=== PATIENT | female | born 1965 | race Hispanic/Latino ===

== ENCOUNTER → 2018-08-04 | Day surgery (SDC) | payer OTHER ==
[2018-08-03 14:42] LABS: ANION GAP 12.3 mmol/L (8-16); BLOOD UREA NITROGEN 16 mg/dL (7-26); BUN/CREATININE RATIO 24 (6-25); CARBON DIOXIDE 27 mmol/L (22-29); CHLORIDE 106 mmol/L (98-107); CREATININE, SERUM 0.67 mg/dL (0.57-1.11); EST GLOMERULAR FILTRATION RATE > 60 ML/MIN (60-); GLUCOSE 97 mg/dL (74-118); POTASSIUM 4.3 mmol/L (3.5-5.1); SODIUM 141 mmol/L (136-145)
[~2018-08-04] MED LIST: ACETAMINOPHEN 1000 MG/100 ML 100 ML IV ONE; BUPIVACAINE HCL 0.5% INJ 30 ML VIAL INJ ONE; CEFAZOLIN SOD 1 GM/D5W 50ML 50 ML IV ONE; DEXAMETHASONE SOD PHOS INJ 4 MG/ML VIAL ONE; EPHEDRINE SULFATE INJ 50 MG/10 ML SYR ONE; FENTANYL CITRATE/PF 100MCG/2 ML INJ ONE; LIDOCAINE HCL 2% LOCAL INJ 5 ML SDV VIAL INJ ONE; METFORMIN HCL500 MG PO; MIDAZOLAM HCL 2 MG/2 ML VIAL ONE; ONDANSETRON HCL INJ 2 MG/ML VIAL ONE; PROPOFOL IV EMULSION 10 MG/ML 20 ML VIAL ONE
--- OUTSIDE RECORDS SUMMARY | 2018-08-04 05:44 | XMS REPORT | Summary of Care ---
Author Author [facility] [place] Organization [facility] [place] Address Unknown Phone Unavailable Encounter HQ Encntr_alimelissa(FIN) [id number] Date(s): 06/01/15 - 06/01/15 [facility] [place] [address] [place] [id number] [phone] Discharge Disposition: Home Attending Physician: Jolene Gold MD Vital Signs No data available for this section Problem List No data available for this section Allergies, Adverse Reactions, Alerts No data available for this section Medications No data available for this section Results No data available for this section Immunizations No data available for this section Procedures No data available for this section Social History No data available for this section Assessment and Plan No data available for this section
--- OUTSIDE RECORDS SUMMARY | 2018-08-04 05:44 | XMS REPORT | Summary of Care ---
Author Author [facility] Organization [facility] Address Unknown Phone Unavailable Encounter JIAN Jhaveri(JOSÉ MIGUEL) [id number] Date(s): 08/08/16 - 08/08/16 [facility] [address] [facility] provided by [facility] [employer] [facility] [employer] [place] [address]- Discharge Diagnosis: Headache, migraine Discharge Disposition: Home or Self Care Attending Physician: Josie Hendrickson MD Vital Signs Most recent to 1 2 oldest [Reference Range]: Height 154.94 cm (08/08/16 10:16 AM) Temperature Oral 98.0 DegF 97.8 DegF [96.4-99.1 DegF] (08/08/16 1:03 PM) (08/08/16 10:16 AM) Blood Pressure 126/81 mmHg 127/87 mmHg [90-140/60-90 mmHg] (08/08/16 1:03 PM) (08/08/16 10:16 AM) Respiratory Rate 18 BRMIN 18 BRMIN [14-20 BRMIN] (08/08/16 1:03 PM) (08/08/16 10:16 AM) Peripheral Pulse 80 bpm 79 bpm Rate [60-100 bpm] (08/08/16 1:03 PM) (08/08/16 10:16 AM) Weight 76.364 kg (08/08/16 10:16 AM) Body Mass Index 31.81 m2 (08/08/16 10:16 AM) Problem List Condition Effective Dates Status Health Status Informant Prediabetes(Confirme Resolved d) Migraine(Confirmed) Active Allergies, Adverse Reactions, Alerts Substance Reaction Severity Status NKDA Active Medications Benadryl 25 mg, 0.5 mL, Route: IVP, Drug form: INJ, ONCE, Dosing Weight 76.364, kg, Prior ity: STAT, Start date: 08/08/16 10:29:00 ARTIFACTS CONSERVATOR, Stop date: 08/08/16 10:29:00 ARTIFACTS CONSERVATOR Notes: (Same as: Benadryl) Start Date: 08/08/16 Stop Date: 08/08/16 Status: Completed ketOROLAC 30 mg, 1 mL, Route: IVP, Drug form: INJ, ONCE, Dosing Weight 76.364, kg, Priorit y: STAT, Start date: 08/08/16 10:29:00 ARTIFACTS CONSERVATOR, Stop date: 08/08/16 10:29:00 ARTIFACTS CONSERVATOR Notes: (Same as:Toradol) IV bolus must be given >15 seconds. Give IM administration slowly and deeply into the muscle.Not for use > 4 days MEDICATION WASTE Product Size: 30 mgProduct Wasted: ___ mg Start Date: 08/08/16 Stop Date: 08/08/16 Status: Completed metoclopramide 10 mg, 2 mL, Route: IVP, Drug form: INJ, ONCE, Dosing Weight 76.364, kg, Priorit y: STAT, Start date: 08/08/16 10:29:00 ARTIFACTS CONSERVATOR, Stop date: 08/08/16 10:29:00 ARTIFACTS CONSERVATOR Notes: (Same as: Reglan) Start Date: 08/08/16 Stop Date: 08/08/16 Status: Completed sodium chloride 0.9% 1000 ml INJ 1,000 mL 1,000 mL, Rate: 1,000 ml/hr, Infuse over: 1 hr, Route: IV, Dosing Weight 76.364 kg, Total Volume: 1,000, Start date: 08/08/16 10:29:00 ARTIFACTS CONSERVATOR, Duration: 1 doses or times, Stop date: 08/08/16 11:28:00 ARTIFACTS CONSERVATOR, Bolus Dose Start Date: 08/08/16 Stop Date: 08/08/16 Status: Completed Results No data available for this section Immunizations No data available for this section Procedures Procedure Date Related Diagnosis Body Site Partial hysterectomy Social History Social History Type Response Smoking Status Never smoker; Exposure to Tobacco Smoke None; Cigarette Smoking Last 365 Days No; Reg Smoking Cessation Counseling No Assessment and Plan No data available for this section
--- OUTSIDE RECORDS SUMMARY | 2018-08-04 05:44 | XMS REPORT | Continuity of Care Document ---
Author Author Stephanie [facility] Address Unknown Phone Unavailable Problems Problem Status Onset Date Classification Date Reported Comments Source Discharge Diagnosis: Elevated BP without diagnosis of hypertension 08/20/2017 08/23/2017 [facility] Discharge Diagnosis: Syncope 08/20/2017 08/23/2017 [facility] ARTIS/SYNCOPE Active 08/19/2017 [facility] Discharge Diagnosis: Headache, migraine 08/08/2016 08/11/2016 [facility] MIGRAINE Active 08/08/2016 [facility] 611.71 - MASTODYNIA Active 05/29/2015 [facility] [place] 611.71=MASTODYNIA, FEMALE Active 09/29/2014 [facility] 611.72 - LUMP OR MASS IN Active 04/08/2012 [facility] Prediabetes Resolved Problem 08/23/2017 [facility] Migraine Active Problem 08/23/2017 [facility] Medications Medication Details Route Status Patient Instructions Ordering Provider Order Date Source Ondansetron 4 MG Disintegrating Tablet 4 mg=1 tab, PO, TID, PRN Nausea / Vomiting, Dissolve tab under tongue, # 10 tab, 0 Refill(s) Active 08/20/2017 [facility] meloxicam 7.5 mg oral tablet 7.5 mg=1 tab, PO, Daily, # 5 tab, 0 Refill(s) Active 08/20/2017 [facility] Metoclopramide 10 mg, Route: IVP, Drug form: INJ, ONCE, Dosing Weight 75, kg, Priority: STAT, Start date: 08/19/17 22:33:00 [employer] SEALER, Stop date: 08/19/17 22:33:00 [employer] SEALER Inactive 08/20/2017 [facility] Ketorolac 15 mg, Route: IVP, Drug form: INJ, ONCE, Dosing Weight 75, kg, Priority: STAT, Start date: 08/19/17 22:32:00 [employer] SEALER, Stop date: 08/19/17 22:32:00 [employer] SEALER Inactive 08/20/2017 [facility] Potassium Chloride 40 mEq, 2 tab, Route: PO, Drug form: ERTAB, ONCE, Dosing Weight 75, kg, Priority: STAT, Start date: 08/19/17 22:03:00 [employer] SEALER, Stop date: 08/19/17 22:03:00 CSTNotes: (Same as: K-Dur 20) "Do Not Crush" With food and full glass of water Inactive 08/20/2017 [facility] Zofran 4 mg, Route: IVP, Drug form: INJ, ONCE, Dosing Weight 75, kg, Priority: STAT, Start date: 08/19/17 21:25:00 [employer] SEALER, Stop date: 08/19/17 21:25:00 [employer] SEALER Inactive 08/20/2017 [facility] Sodium Chloride 0.9% (Bolus) IV 1,000 mL, 1000 ml/hr, Infuse Over: 1 hr, Route: IV, 1,000, Drug form: INJ, ONCE, Priority: STAT, Dosing Weight 75 kg, Start date: 08/19/17 20:14:00 [employer] SEALER, Stop date: 08/19/17 20:14:00 [employer] SEALER Inactive 08/20/2017 [facility] Saline Flush 0.9% 10 mL, Route: IVP, Drug Form: INJ, Dosing Weight 75, kg, PRN, PRN Line Flush, Start date: 08/19/17 20:14:00 [employer] SEALER, Duration: 30 day, Stop date: 09/18/17 20:13:00 CSTNotes: (Same as: BD Posiflush) No Longer Active 08/20/2017 [facility] Metoclopramide 10 mg, 2 mL, Route: IVP, Drug form: INJ, ONCE, Dosing Weight 76.364, kg, Priority: STAT, Start date: 08/08/16 10:29:00 [employer] P[employer] SEALER, Stop date: 08/08/16 10:29:00 CSTNotes: (Same as: Reglan) Inactive 08/08/2016 [facility] Ketorolac 30 mg, 1 mL, Route: IVP, Drug form: INJ, ONCE, Dosing Weight 76.364, kg, Priority: STAT, Start date: 08/08/16 10:29:00 [employer]OND[employer] PACK[employer] SEALER, Stop date: 08/08/16 10:29:00 CSTNotes: (Same as:Toradol) IV bolus must be given >15 seconds. Give IM administration slowly and deeply into the muscle. Not for use > 4 days MEDICATION WASTE Product Size: 30 mg Product Wasted: ___ mg Inactive 08/08/2016 [facility] sodium chloride 0.9% 1000 ml INJ 1,000 mL 1,000 mL, Rate: 1,000 ml/hr, Infuse over: 1 hr, Route: IV, Dosing Weight 76.364 kg, Total Volume: 1,000, Start date: 08/08/16 10:29:00 [employer]ICOND[employer] P[employer] SEALER, Duration: 1 doses or times, Stop date: 08/08/16 11:28:00 SEMICOND[employer]CTOR PACKAGES SEALER, Bolus Dose Inactive 08/08/2016 [facility] Benadryl 25 mg, 0.5 mL, Route: IVP, Drug form: INJ, ONCE, Dosing Weight 76.364, kg, Priority: STAT, Start date: 08/08/16 10:29:00 SEMICONDUCTOR PACKAGES SEALER, Stop date: 08/08/16 10:29:00 CSTNotes: (Same as: Benadryl) Inactive 08/08/2016 [facility] Allergies, Adverse Reactions, Alerts Substance Category Reaction Severity Reaction type Status Date Reported Comments Source Immunizations Immunization Date Given Site Status Last Updated Comments Source Results Order Name Results Value Reference Range Date Interpretation Comments Source URINE AND STOOL UA Urobilinogen <=1.0 mg/dL 0.1 - 1.0 08/20/2017 [facility] URINE AND STOOL UA Glucose Negative mg/dL Negative mg/dL 08/20/2017 [facility] URINE AND STOOL UA Sq Epi Occasional /LPF Few /LPF 08/20/2017 [facility] URINE AND STOOL UA Nitrite Negative (08/19/17 9:45 PM) Negative 08/20/2017 [facility] URINE AND STOOL UA Mucus Few /LPF None Seen /LPF 08/20/2017 [facility] URINE AND STOOL UA Leuk Est Negative (08/19/17 9:45 PM) Negative 08/20/2017 [facility] URINE AND STOOL UA Ketones Negative mg/dL Negative mg/dL 08/20/2017 [facility] URINE AND STOOL UA Blood Negative (08/19/17 9:45 PM) Negative 08/20/2017 [facility] URINE AND STOOL UA Bili Negative *NA* (08/19/17 9:45 PM) Negative 08/20/2017 [facility] URINE AND STOOL UA Bacteria Occasional /HPF None Seen /HPF 08/20/2017 [facility] URINE AND STOOL UA WBC 1 /HPF 0 - 5 08/20/2017 [facility] URINE AND STOOL UA RBC 1 /HPF 0 - 2 08/20/2017 [facility] URINE AND STOOL UA Spec Grav 1.008 <=1.030 08/20/2017 [facility] URINE AND STOOL UA Turbidity Clear (08/19/17 9:45 PM) Clear 08/20/2017 [facility] URINE AND STOOL UA Protein Negative mg/dL Negative mg/dL 08/20/2017 [facility] URINE AND STOOL UA pH 6.0 5.0 - 8.0 08/20/2017 [facility] URINE AND STOOL UA Color Light Yellow *NA* (08/19/17 9:45 PM) Yellow 08/20/2017 [facility] CARDIAC ENZYMES CK MB Index null 0.0 - 2.5 08/20/2017 [facility] CARDIAC ENZYMES Troponin-I null 0.00 - 0.40 08/20/2017 [facility] CARDIAC ENZYMES CK MB null 0.5 - 3.6 08/20/2017 [facility] CARDIAC ENZYMES Total CK 40 unit/L 12 - 191 08/20/2017 [facility] CHEM PANEL Bili Total 0.4 mg/dL 0.2 - 1.3 08/20/2017 [facility] CHEM PANEL eGFR 108 mL/min/1.73m2 08/20/2017 Result Comment: The eGFR is calculated using the CKD-EPI formula. In most young, healthy individuals the eGFR will be >90 mL/min/1.73m2. The eGFR declines with age. An eGFR of 60-89 may be normal in some populations, particularly the elderly, for whom the CKD-EPI formula has not been extensively validated. Use of the eGFR is not recommended in the following populations: Individuals with unstable creatinine concentrations, including patients and those with serious co-morbid conditions. Patients with extremes in muscle mass or diet. The data above are obtained from the National Kidney Disease Education Program (NKDEP) which additionally recommends that when the eGFR is used in patients with extremes of body mass index for purposes of drug dosing, the eGFR should be multiplied by the estimated BMI. [facility] CHEM PANEL Alk Phos 88 unit/L 39 - 136 08/20/2017 [facility] CHEM PANEL Albumin Lvl 3.5 g/dL 3.5 - 5.0 08/20/2017 [facility] CHEM PANEL ALT 29 unit/L 0 - 65 08/20/2017 [facility] CHEM PANEL AST 21 unit/L 0 - 37 08/20/2017 [facility] CHEM PANEL Globulin 4.3 g/dL 2.7 - 4.2 08/20/2017 [facility] CHEM PANEL A/G Ratio 0.8 0.7 - 1.6 08/20/2017 [facility] CHEM PANEL B/C Ratio 27 6 - 25 08/20/2017 [facility] CHEM PANEL Total Protein 7.8 g/dL 6.4 - 8.4 08/20/2017 [facility] CHEM PANEL AGAP 11.0 meq/L 10.0 - 20.0 08/20/2017 [facility] CHEM PANEL Calcium Lvl 9.0 mg/dL 8.5 - 10.5 08/20/2017 [facility] CHEM PANEL Chloride Lvl 107 meq/L 95 - 109 08/20/2017 [facility] CHEM PANEL Potassium Lvl 3.0 meq/L 3.5 - 5.1 08/20/2017 Result Comment: Critical Result(s) called to verna oviedo at 08/19/2017 21:56 bylw. Read back OK. [facility] CHEM PANEL CO2 26 meq/L 24 - 32 08/20/2017 [facility] CHEM PANEL Creatinine Lvl 0.59 mg/dL 0.50 - 1.40 08/20/2017 [facility] CHEM PANEL BUN 16 mg/dL 7 - 22 08/20/2017 [facility] CHEM PANEL Sodium Lvl 141 meq/L 135 - 145 08/20/2017 [facility] CHEM PANEL Glucose Lvl 114 mg/dL 70 - 99 08/20/2017 [facility] ENDOCRINOLOGY S Preg Negative *NA* (08/19/17 9:20 PM) Negative 08/20/2017 [facility] HEMATOLOGY Eosinophils # 0.4 K/CMM 0.0 - 0.5 08/20/2017 [facility] HEMATOLOGY Basophils # 0.1 K/CMM 0.0 - 0.2 08/20/2017 [facility] HEMATOLOGY Lymphocytes 36.8 % 20.0 - 40.0 08/20/2017 [facility] HEMATOLOGY Monocytes 6.9 % 2.0 - 12.0 08/20/2017 [facility] HEMATOLOGY Eosinophils 4.2 % 0.0 - 4.0 08/20/2017 [facility] HEMATOLOGY Basophils 0.9 % 0.0 - 1.0 08/20/2017 [facility] HEMATOLOGY Segs-Bands # 4.7 K/CMM 1.5 - 8.1 08/20/2017 [facility] Segs 51.2 % 45.0 - 75.0 08/20/2017 [facility] Monocytes # 0.6 K/CMM 0.0 - 0.8 08/20/2017 [facility] HEMATOLOGY Lymphocytes # 3.3 K/CMM 1.0 - 5.5 08/20/2017 [facility] PTT 31.8 s 22.9 - 35.8 08/20/2017 [facility] PT 13.0 s 12.0 - 14.7 08/20/2017 [facility] INR 0.98 0.85 - 1.17 08/20/2017 [facility] Platelet 267 K/CMM 133 - 450 08/20/2017 [facility] Hgb 13.4 g/dL 12.0 - 16.0 08/20/2017 [facility] MCV 88.9 fL 80.0 - 98.0 08/20/2017 [facility] Hct 38.8 % 36.0 - 48.0 08/20/2017 [facility] MCH 30.8 pg 27.0 - 31.0 08/20/2017 [facility] MCHC 34.6 g/dL 32.0 - 36.0 08/20/2017 [facility] RBC 4.37 M/CMM 4.20 - 5.40 08/20/2017 [facility] RDW 13.4 % 11.5 - 14.5 08/20/2017 [facility] WBC 9.1 K/CMM 3.7 - 10.4 08/20/2017 [facility] MPV 8.5 fL 7.4 - 10.4 08/20/2017 [facility] Chest 1view DX Chest 1view DX Patient Name: PIEDAD COX : 1965; Age: 51 years y/o Female MR: [id number] Study: Chest 1view DX 08/19/2017 8:14 PM [employer]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 The cardiac silhouette is mildly prominent. The polar vasculature appears somewhat congested. There is no pleural effusion or pneumothorax. IMPRESSION: Cardiac silhouette and pulmonary vessels appear prominent. Although possibly accentuated by expiratory phase portable AP radiograph, correlate clinically for volume overload, congestive heart failure status. SL: MARY 08/19/2017 - - Read by: Aj Mcginnis MD Dictated Date/time: 08/19/17 20:42 Electronically Signed by: Aj Mcginnis MD 08/19/17 20:43 FINAL REPORT [facility] contrast CT Brain wo contrast CT I have reviewed this examination and concur with the interpretation. Clinical Indication: - syncope; syncope x3 prior to arrival, headache (2), Comparison: 08/08/2016 TECHNIQUE: CT images were obtained from the foramen magnum to the vertex without the use of intravenous contrast on a multidetector CT. Coronal and sagittal reconstructions were obtained. CT radiation dose DLP: 1204 mGy-cm FINDINGS: BRAIN PARENCHYMA: There is no mass effect, midline shift or edema. There is no intracranial hyperdense hemorrhage. VENTRICLES: The lateral ventricles, third and fourth ventricles appear unremarkable. The basilar cisterns are normal. ORBITS, MASTOIDS AND PARANASAL SINUSES: The limited visualized orbits are unremarkable. The limited visualized paranasal sinuses are unremarkable. The mastoid air cells are clear. SKULL: There are no osseous abnormalities. If there is further concern for intracranial pathology or acute stroke, MRI of the brain may be performed for complete assessment. ---- IMPRESSION: Unremarkable noncontrast head CT with no mass effect, hemorrhage or subacute stroke. ----- SL: [id number] 08/19/2017 - - Read by: Pepe Felton DO Dictated Date/time: 08/19/17 21:05 Electronically Signed by: Pepe Felton DO 08/19/17 21:07 FINAL REPORT - - Read by: Gucci Dean MD Dictated Date/time: 08/19/17 20:49 Electronically Signed by: Gucci Dean MD 08/19/17 20:51 FINAL REPORT [facility] contrast CT Brain wo contrast CT EXAM: CT BRAIN WITHOUT CONTRAST DATE: 08/08/2016 11:18 AM INDICATION: Headache COMPARISON: None TECHNIQUE: Noncontrast axial imaging of the brain was acquired from the vertex to the skull base. Coronal and sagittal reformatted images were generated. DLP: 758mGy-cm FINDINGS: No acute hemorrhage or extra-axial collection. Unremarkable attenuation of the brain parenchyma. No hydrocephalus, midline shift, or herniation. No abnormal extra-axial collection. The calvarium and skull base are intact. Mucosal thickening and fluid in the right sphenoid sinus chamber. IMPRESSION: No acute intracranial abnormality. Right sphenoid sinus disease. 08/08/2016 - - Read by: Senthil Negrete MD Dictated Date/time: 08/08/16 11:45 Electronically Signed by: Senthil Negrete MD 08/08/16 11:52 FINAL REPORT [facility] Breast Limited Hayder US Breast Limited Hayder US - DIGITAL MAMMO DX HAYDER MA - BREAST LIMITED HAYDER US BILATERAL DIGITAL DIAGNOSTIC MAMMOGRAM WITH CAD AND TARGETED BILATERAL ULTRASOUND: 06/01/2015 CLINICAL: Mastodynia. Current study was evaluated with a Computer Aided Detection (CAD) system. Comparison is made to exams dated: 01/09/2012 mammogram, 02/22/2011 mammogram and 01/24/2011 mammogram. The tissue of both breasts is heterogeneously dense, which could obscure detection of small masses. Patient complains of right breast pain inferior hemisphere. No mammographic or US correlation identified. Patient complains of leftbreast pain inferior hemisphere. No mammographic orrelation identified. Ion ultrasound evaluation, there is a complex cyst seen at the 3:00 6 CMFN. It measures 1.1 x .6 x .5 cm. IMPRESSION: PROBABLY BENIGN, TARGETED ULTRASOUND PROBABLY BENIGN There is no mammographic abnormality seen in the right breast to correspond with the pain. A follow-up mammogram and an ultrasound in 6 months is recommended to demonstrate stability of the complex cyst of the left breast. Dr. Tigre Thompson M.D. sl/:06/01/2015 15:42:19 [employer] Tr[employer]: Kayla BARILLAS(Cabrera)(M), [facility] This exam was dictated and interpreted by [id number] for LUIS MANUEL Leyva. letter sent: Followup Mammogram BI-RADS: 3 Probably benign Ultrasound BI-RADS: 3 Probably benign 06/01/2015 - - Read by: Tigre Thompson MD Dictated Date/time: 06/01/15 15:42 Electronically Signed by: Tigre Thompson MD 06/01/15 15:42 FINAL REPORT FRANTZ Leyva Digital Mammo DX Hayder MA Digital Mammo DX Hayder MA - DIGITAL MAMMO DX HAYDER MA - BREAST LIMITED HAYDER US BILATERAL DIGITAL DIAGNOSTIC MAMMOGRAM WITH CAD AND TARGETED BILATERAL ULTRASOUND: 06/01/2015 CLINICAL: Mastodynia. Current study was evaluated with a Computer Aided Detection (CAD) system. Comparison is made to exams dated: 01/09/2012 mammogram, 02/22/2011 mammogram and 01/24/2011 mammogram. The tissue of both breasts is heterogeneously dense, which could obscure detection of small masses. Patient complains of right breast pain inferior hemisphere. No mammographic or US correlation identified. Patient complains of leftbreast pain inferior hemisphere. No mammographic orrelation identified. Ion ultrasound evaluation, there is a complex cyst seen at the 3:00 6 CMFN. It measures 1.1 x .6 x .5 cm. IMPRESSION: PROBABLY BENIGN, TARGETED ULTRASOUND PROBABLY BENIGN There is no mammographic abnormality seen in the right breast to correspond with the pain. A follow-up mammogram and an ultrasound in 6 months is recommended to demonstrate stability of the complex cyst of the left breast. Dr. Tigre Thompson M.D. sl/:06/01/2015 15:42:19 [employer]: Kayla BARILLAS(Cabrera)([place]), [facility] This exam was dictated and interpreted by [id number] for Gordon. letter sent: Followup Mammogram BI-RADS: 3 Probably benign Ultrasound BI-RADS: 3 Probably benign 06/01/2015 - - Read by: Tigre Thompson MD Dictated Date/time: 06/01/15 15:42 Electronically Signed by: Tigre Thompson MD 06/01/15 15:42 FINAL REPORT [facility]ida Vital Signs Vital Sign Value Date Comments Source Systolic (mm Hg) 127 08/20/2017 [facility] Diastolic (mm Hg) 87 08/20/2017 [facility] Respitory Rate 18 08/20/2017 [facility] Systolic (mm Hg) 119 08/20/2017 [facility] Diastolic (mm Hg) 81 08/20/2017 [facility] Respitory Rate 17 08/20/2017 [facility] Systolic (mm Hg) 129 08/20/2017 [facility] Diastolic (mm Hg) 75 08/20/2017 [facility] Respitory Rate 16 08/20/2017 [facility] Height 162.56 cm 08/20/2017 [facility] Weight 75 08/20/2017 [facility] BMI Calculated 28.38 08/20/2017 [facility] Temperature Oral (F) 97.8 F 08/20/2017 [facility] Heart Rate 74 08/20/2017 [facility] Temperature Oral (F) 98.0 F 08/08/2016 [facility] Systolic (mm Hg) 126 08/08/2016 [facility] Diastolic (mm Hg) 81 08/08/2016 [facility] Respitory Rate 18 08/08/2016 [facility] Heart Rate 80 08/08/2016 [facility] Weight 76.364 08/08/2016 [facility] BMI Calculated 31.81 08/08/2016 [facility] Height 154.94 cm 08/08/2016 [facility] Respitory Rate 18 08/08/2016 [facility] Systolic (mm Hg) 127 08/08/2016 [facility] Diastolic (mm Hg) 87 08/08/2016 [facility] Heart Rate 79 08/08/2016 [facility] Temperature Oral (F) 97.8 F 08/08/2016 [facility] Encounters Location Location Details Encounter Type Encounter Number Reason For Visit Attending Provider ADM Date DC Date Status Source OD [id number] 611.72 - LUMP OR MASS [place] 04/13/2012 Active [facility] [place] [id number]2015 [facility] [id number] Josie Hendrickson 08/08/2016 08/08/2016 [facility] [id number] Timur Weathers 08/20/2017 08/20/2017 [facility] Procedures Procedure Code Date Perfomer Comments Source Partial hysterectomy [id number] [facility] Partial hysterectomy [id number] [facility]
--- OUTSIDE RECORDS SUMMARY | 2018-08-04 05:44 | XMS REPORT | Summary of Care ---
Author Author [facility] Organization [facility] Address Unknown Phone Unavailable Encounter JIAN Jhaveri(JOSÉ MIGUEL) [id number] Date(s): 08/19/17 - 08/20/17 [facility] [address] [place] [address]- [phone] Discharge Diagnosis: Elevated BP without diagnosis of hypertension Discharge Diagnosis: Syncope Discharge Disposition: Home or Self Care Attending Physician: Timur Cisneros MD Vital Signs 1 2 3 Most recent to oldest [Reference Range]: 162.56 cm (08/19/17 7:59 PM) Height 97.8 DegF (08/19/17 7:59 PM) Temperature Oral [96.4-99.1 DegF] 127/87 mmHg (08/20/17 12:30 AM) 119/81 mmHg (08/19/17 11:00 PM) 129/75 mmHg (08/19/17 10:30 PM) Blood Pressure [90-140/60-90 mmHg] 18 BRMIN (08/20/17 12:30 AM) 17 BRMIN (08/19/17 11:00 PM) 16 BRMIN (08/19/17 10:30 PM) Respiratory Rate [14-20 BRMIN] 74 bpm (08/19/17 7:59 PM) Peripheral Pulse Rate [60-100 bpm] 75 kg (08/19/17 7:59 PM) Weight 28.38 m2 (08/19/17 7:59 PM) Body Mass Index Problem List Condition Effective Dates Status Health Status Informant Prediabetes(Confirme Resolved d) Migraine(Confirmed) Active Allergies, Adverse Reactions, Alerts Substance Reaction Severity Status NKDA Active Medications ketOROLAC 15 mg, Route: IVP, Drug form: INJ, ONCE, Dosing Weight 75, kg, Priority: STAT, S tart date: 08/19/17 22:32:00 LIVESTOCK SHOWMAN, Stop date: 08/19/17 22:32:00 LIVESTOCK SHOWMAN Start Date: 08/19/17 Stop Date: 08/19/17 Status: Completed meloxicam 7.5 mg oral tablet 7.5 mg=1 tab, PO, Daily, # 5 tab, 0 Refill(s) Start Date: 08/20/17 Stop Date: 08/25/17 Status: Ordered metoclopramide 10 mg, Route: IVP, Drug form: INJ, ONCE, Dosing Weight 75, kg, Priority: STAT, S tart date: 08/19/17 22:33:00 LIVESTOCK SHOWMAN, Stop date: 08/19/17 22:33:00 LIVESTOCK SHOWMAN Start Date: 08/19/17 Stop Date: 08/19/17 Status: Completed ondansetron 4 mg oral tablet, disintegrating 4 mg=1 tab, PO, TID, PRN Nausea / Vomiting, Dissolve tab under tongue, # 10 tab, 0 Refill(s) Start Date: 08/20/17 Stop Date: 08/23/17 Status: Ordered potassium chloride 40 mEq, 2 tab, Route: PO, Drug form: ERTAB, ONCE, Dosing Weight 75, kg, Priority : STAT, Start date: 08/19/17 22:03:00 LIVESTOCK SHOWMAN, Stop date: 08/19/17 22:03:00 LIVESTOCK SHOWMAN Notes: (Same as: K-Dur 20)"Do Not Crush" With food and full glass of water Start Date: 08/19/17 Stop Date: 08/19/17 Status: Completed Saline Flush 0.9% 10 mL, Route: IVP, Drug Form: INJ, Dosing Weight 75, kg, PRN, PRN Line Flush, St art date: 08/19/17 20:14:00 LIVESTOCK SHOWMAN, Duration: 30 day, Stop date: 09/18/17 20:13:00 LIVESTOCK SHOWMAN Notes: (Same as: BD Posiflush) Start Date: 08/19/17 Stop Date: 08/20/17 Status: Discontinued Sodium Chloride 0.9% (Bolus) IV 1,000 mL, 1000 ml/hr, Infuse Over: 1 hr, Route: IV, 1,000, Drug form: INJ, ONCE, Priority: STAT, Dosing Weight 75 kg, Start date: 08/19/17 20:14:00 LIVESTOCK SHOWMAN, Stop da te: 08/19/17 20:14:00 LIVESTOCK SHOWMAN Start Date: 08/19/17 Stop Date: 08/19/17 Status: Completed Zofran 4 mg, Route: IVP, Drug form: INJ, ONCE, Dosing Weight 75, kg, Priority: STAT, St art date: 08/19/17 21:25:00 LIVESTOCK SHOWMAN, Stop date: 08/19/17 21:25:00 LIVESTOCK SHOWMAN Start Date: 08/19/17 Stop Date: 08/19/17 Status: Completed Results ELECTROLYTES Most recent to 1 oldest [Reference Range]: Sodium Lvl [135-145 141 mEq/L mEq/L] (08/19/17 9:20 PM) Potassium Lvl 3.0 mEq/L 1 [3.5-5.1 mEq/L] *CRIT* (08/19/17 9:20 PM) Chloride Lvl [95-109 107 mEq/L mEq/L] (08/19/17 9:20 PM) CO2 [24-32 mEq/L] 26 mEq/L (08/19/17 9:20 PM) AGAP [10.0-20.0 11.0 mEq/L mEq/L] (08/19/17 9:20 PM) 1Result Comment: Critical Result(s) called to verna oviedo at 08/19/2017 21:56 bylw. Read back OK. CHEM PANEL Most recent to 1 oldest [Reference Range]: Creatinine Lvl 0.59 mg/dL [0.50-1.40 mg/dL] (08/19/17 9:20 PM) eGFR 108 mL/min/1.73m2 1 *NA* (08/19/17 9:20 PM) BUN [7-22 mg/dL] 16 mg/dL (08/19/17 9:20 PM) B/C Ratio [6-25] 27 *HI* (08/19/17 9:20 PM) Glucose Lvl [70-99 114 mg/dL mg/dL] *HI* (08/19/17 9:20 PM) Total Protein 7.8 g/dL [6.4-8.4 g/dL] (08/19/17 9:20 PM) Albumin Lvl [3.5-5.0 3.5 g/dL g/dL] (08/19/17 9:20 PM) Globulin [2.7-4.2 4.3 g/dL g/dL] *HI* (08/19/17 9:20 PM) A/G Ratio [0.7-1.6] 0.8 (08/19/17 9:20 PM) Calcium Lvl 9.0 mg/dL [8.5-10.5 mg/dL] (08/19/17 9:20 PM) ALT [0-65 unit/L] 29 unit/L (08/19/17 9:20 PM) AST [0-37 unit/L] 21 unit/L (08/19/17 9:20 PM) Alk Phos [39-136 88 unit/L unit/L] (08/19/17 9:20 PM) Bili Total [0.2-1.3 0.4 mg/dL mg/dL] (08/19/17 9:20 PM) 1Result Comment: The eGFR is calculated using the [...] from the National Kidney Disease Education Program ( NKDEP) which additionally recommends that when the eGFR is used in patients with extremes of body mass index for purposes of drug dosing, the eGFR should be mul tiplied by the estimated BMI. CARDIAC ENZYMES Most recent to 1 oldest [Reference Range]: Total CK [12-191 40 unit/L unit/L] (08/19/17 9:20 PM) CK MB [0.5-3.6 <1.0 ng/mL ng/mL] (08/19/17 9:20 PM) CK MB Index <2.5 [0.0-2.5] (08/19/17 9:20 PM) Troponin-I <0.02 ng/mL [0.00-0.40 ng/mL] (08/19/17 9:20 PM) ENDOCRINOLOGY Most recent to 1 oldest [Reference Range]: S Preg [Negative] Negative *NA* (08/19/17 9:20 PM) URINE AND STOOL Most recent to 1 oldest [Reference Range]: UA Turbidity [Clear] Clear (08/19/17 9:45 PM) UA Color [Yellow] Light Yellow *NA* (08/19/17 9:45 PM) UA pH [5.0-8.0] 6.0 (08/19/17 9:45 PM) UA Spec Grav 1.008 [<=1.030] (08/19/17 9:45 PM) UA Glucose [Negative Negative mg/dL mg/dL] *NA* (08/19/17 9:45 PM) UA Blood [Negative] Negative (08/19/17 9:45 PM) UA Ketones [Negative Negative mg/dL mg/dL] *NA* (08/19/17 9:45 PM) UA Protein [Negative Negative mg/dL mg/dL] (08/19/17 9:45 PM) UA Urobilinogen <=1.0 mg/dL [0.1-1.0 mg/dL] *NA* (08/19/17 9:45 PM) UA Bili [Negative] Negative *NA* (08/19/17 9:45 PM) UA Leuk Est Negative [Negative] (08/19/17 9:45 PM) UA Nitrite Negative [Negative] (08/19/17 9:45 PM) UA WBC [0-5 /HPF] 1 /HPF (08/19/17 9:45 PM) UA RBC [0-2 /HPF] 1 /HPF (08/19/17 9:45 PM) UA Bacteria [None Occasional /HPF Seen /HPF] *NA* (08/19/17 9:45 PM) UA Sq Epi [Few /LPF] Occasional /LPF *NA* (08/19/17 9:45 PM) UA Mucus [None Seen Few /LPF /LPF] *NA* (08/19/17 9:45 PM) HEMATOLOGY Most recent to 1 oldest [Reference Range]: WBC [3.7-10.4 K/CMM] 9.1 K/CMM (08/19/17 9:20 PM) RBC [4.20-5.40 4.37 M/CMM M/CMM] (08/19/17 9:20 PM) Hgb [12.0-16.0 g/dL] 13.4 g/dL (08/19/17 9:20 PM) Hct [36.0-48.0 %] 38.8 % (08/19/17 9:20 PM) MCV [80.0-98.0 fL] 88.9 fL (08/19/17 9:20 PM) MCH [27.0-31.0 pg] 30.8 pg (08/19/17 9:20 PM) MCHC [32.0-36.0 34.6 g/dL g/dL] (08/19/17 9:20 PM) RDW [11.5-14.5 %] 13.4 % (08/19/17 9:20 PM) Platelet [133-450 267 K/CMM K/CMM] (08/19/17 9:20 PM) MPV [7.4-10.4 fL] 8.5 fL (08/19/17 9:20 PM) Segs [45.0-75.0 %] 51.2 % (08/19/17 9:20 PM) Lymphocytes 36.8 % [20.0-40.0 %] (08/19/17 9:20 PM) Monocytes [2.0-12.0 6.9 % %] (08/19/17 9:20 PM) Eosinophils [0.0-4.0 4.2 % %] *HI* (08/19/17 9:20 PM) Basophils [0.0-1.0 0.9 % %] (08/19/17 9:20 PM) Segs-Bands # 4.7 K/CMM [1.5-8.1 K/CMM] (08/19/17 9:20 PM) Lymphocytes # 3.3 K/CMM [1.0-5.5 K/CMM] (08/19/17 9:20 PM) Monocytes # [0.0-0.8 0.6 K/CMM K/CMM] (08/19/17 9:20 PM) Eosinophils # 0.4 K/CMM [0.0-0.5 K/CMM] (08/19/17 9:20 PM) Basophils # [0.0-0.2 0.1 K/CMM K/CMM] (08/19/17 9:20 PM) PT [12.0-14.7 13.0 seconds seconds] (08/19/17 9:20 PM) INR [0.85-1.17] 0.98 (08/19/17 9:20 PM) PTT [22.9-35.8 31.8 seconds seconds] (08/19/17 9:20 PM) Immunizations No data available for this section Procedures Procedure Date Related Diagnosis Body Site Partial hysterectomy Social History Social History Type Response Smoking Status Never smoker; Exposure to Tobacco Smoke None; Cigarette Smoking Last 365 Days No; Reg Smoking Cessation Counseling No Assessment and Plan No data available for this section
--- OUTSIDE RECORDS SUMMARY | 2018-08-04 05:44 | XMS REPORT | Clinical Summary ---
Author Author [facility] Organization [facility] Address Unknown Phone Unavailable Care Team Providers Care Java Lead Engineer Name Role Phone Asked, No Pcp PCP Unavailable Allergies No Known Allergies Medications End Date Status Medication Sig Dispensed Refills Start Date 02/09/2018 Discontinued sodium,potassium,mag Dispense 1 2 Bottle 0 sulfates (SUPREP BOWEL kit. Take as 8 PREP KIT) 17.5-3.13-1.6 directed. No gram recon soln refills 04/10/2018 omeprazole (PriLOSEC) 40 Take 1 60 capsule 2 MG capsule capsule (40 8 mg total) by mouth daily for 60 days. Active Problems Not on file Encounters Care Team Description Date Type Specialty Occupational exposure to unspecified risk factor (Primary Dx) 03/30/2018 Employee Health Employee Health Sergio Low MD Gastroesophageal reflux disease with esophagitis (Primary Dx); Diverticulosis of large intestine without hemorrhage; Epigastric pain; Class 1 obesity due to excess calories without serious comorbidity in adult, unspecified BMI 02/09/2018 Office Visit Gastroenterology Sergio Low MD 02/09/2018 Telephone Gastroenterology Yojana Ulloa MA 01/20/2018 Telephone Gastroenterology Sergio Low MD 01/16/2018 Lab Lab Sergio Low MD Epigastric pain (Primary Dx); Colon cancer screening; NAFLD (nonalcoholic fatty liver disease); Diarrhea, unspecified type 01/15/2018 Office Visit Gastroenterology Kamaljit Garcia MD 01/14/2018 Telephone Gastroenterology after 08/03/2017 Social History Date Tobacco Use Types Packs/Day Years Used Never Smoker Smokeless Tobacco: Never Used Alcohol Use Drinks/Week oz/Week Comments No Sex Assigned at Date Recorded Not on file Industry Job Start Date Occupation Not on file Not on file Not on file Travel End Travel History Travel Start No recent travel history available. Last Filed Vital Signs Time Taken Vital Sign Reading 02/09/2018 3:01 PM CDT Blood Pressure 112/80 02/09/2018 3:01 PM CDT Pulse 76 - Temperature - - Respiratory Rate - - Oxygen Saturation - - Inhaled Oxygen - Concentration 02/09/2018 3:01 PM CDT Weight 79.9 kg (176 lb 3.2 oz) 01/15/2018 1:10 PM CDT Height 154.9 cm (5' 1") 02/09/2018 3:01 PM CDT Body Mass Index 33.29 Plan of Treatment Health Maintenance Due Date Last Done Comments MMR VACCINES (1 of 1 - 1968 Standard series) VARICELLA VACCINES (1 of 1980 2 - 2-dose adolescent series) HEPATITIS B VACCINES (1 1986 of 3 - Risk 3-dose series) CERVICAL CANCER SCREENING 1988 BREAST CANCER SCREENING 2017 COLON CANCER SCREENING 2017 SHINGRIX VACCINE (1 of 2) 2017 INFLUENZA VACCINE 04/01/2018 IPV VACCINES Aged Out No longer eligible based on patient's age to complete this topic MENINGOCOCCAL VACCINE Aged Out No longer eligible based on patient's age to complete this topic Procedures Comments Procedure Name Priority Date/Time Associated Diagnosis TB IN-TUBE QUANTIFERON Routine 03/30/2018 Occupational exposure to PLUS 3:43 PM CDT unspecified risk factor SURGICAL PATHOLOGY Routine 01/16/2018 REQUEST 12:31 PM CDT after 08/03/2017 Results * TB IN-TUBE Quantiferon plus (03/30/2018 3:43 PM CDT) Quantitative NIL 0.040 IU/mL [facility] DEPARTMENT OF PATHOLOGY AND GENOMIC MEDICINE Quantitative TB1 0.040 IU/mL [facility] DEPARTMENT OF PATHOLOGY AND GENOMIC MEDICINE Quantitative TB2 0.050 IU/mL [facility] DEPARTMENT OF PATHOLOGY AND GENOMIC MEDICINE Quantitative mitogen >10.000 IU/mL [facility] DEPARTMENT OF PATHOLOGY AND GENOMIC MEDICINE Quant TB1-NIL 0.000 IU/mL [facility] DEPARTMENT OF PATHOLOGY AND GENOMIC MEDICINE Quant TB2-NIL 0.010 IU/mL [facility] DEPARTMENT OF PATHOLOGY AND GENOMIC MEDICINE Quantitative mitogen-NIL >10.000 IU/mL [facility] DEPARTMENT OF PATHOLOGY AND GENOMIC MEDICINE Qualitative Negative [facility] DEPARTMENT OF interpretation Comment: PATHOLOGY AND Results are POSITIVE when GENOMIC MEDICINE either of the following conditions are met: 1.Nil <=8.0 AND TB1-Nil >=0.35 AND >=25% of Nil (TB2 is any value) or 2.Nil <=8.0 AND TB2-Nil >=0.35 AND >=25% of Nil (TB1 is any value) Results are NEGATIVE when all of the following conditions are met: 1.Nil <=8.0 2.TB1-Nil and TB2-Nil < 0.35 or [>=0.35 AND < 25% of Nil] 3.Mitogen-Nil >=0.50 Results are INDETERMINATE under either of the following conditions: 1a.Nil <=8.0 AND Mitogen-Nil < 0.50 AND 1b 1b.Both TB1-Nil AND TB2-Nil < 0.35 or [>=0.35 AND <25% of Nil] 2.Nil > 8.0 Warnings and Limitations 1)A negative QFT-Plus result does not preclude the possibility of M. tuberculosis infection or tuberculosis disease: False-negative results can be due to stage of infection (e.g., specimen obtained prior to the development of cellular immune response), co-morbid conditions that affect immune function, incorrect handling of the blood collection tubes following venipuncture, incorrect performance of the assay, or other individual immunological variables. Heterophile antibodies or non-specific IFN-gamma production from other inflammatory conditions may mask specific responses to ESAT-6 or CFP-10 peptides. 2)A positive QFT-Plus result should not be the sole or definitive basis for determining infection with M. tuberculosis. Incorrect performance of the assay may cause false-positive QFT-Plus results. A positive QFT-Plus result should be followed by further medical evaluation for active TB disease (e.g., Acid Fast Bacilli smear and culture, chest X-ray). 3)While ESAT-6 and CFP-10 are absent from all BCG strains and from most known nontuberculous mycobacteria, it is possible that a positive QFT-Plus result may be due to infection by M. kansasii, M. szulgai, or M. marinum. If such infections are suspected, alternative tests should be performed. 4)A false-negative QFT-Plus result can be caused by incorrect blood sample collection or improper handling of the specimen affecting lymphocyte function. Please refer to Specimen Collection and Handling section, page 17, for correct handling of the blood specimens. Delay in incubation may cause false negative or indeterminate results, and other technical parameters may affect ability to detect a significant IFN-gamma response. 5)The effect of lymphocyte count on reliability of QFT-Plus results is unknown. Lymphocyte counts may vary over time for any individual person, and from person to person. The minimum number of lymphocytes required for a reliable test result has not been established and may also be variable. 6)A positive QFT-Plus result can suggest and support the diagnosis of tuberculosis disease. ESAT-6 and CFP-10 are present in M. tuberculosis, but infections by other mycobacteria, including M. kansasii, M. szulgai, and M.marinum may also cause positive results. Other diagnostic evaluations (e.g., AFB smear and culture, chest X-ray) besides QFT-Plus are needed to confirm tuberculosis disease. 7)The predictive value of a negative QFT-Plus result in immunosuppressed persons has not been determined. Specimen Blood Performing Organization Address City/[facility] Cent[facility] Phone Number [address] [address] PATHOLOGY AND GENOMIC MEDICINE * Surgical pathology request (01/16/2018 12:31 PM CDT) [facility] DEPARTMENT OF PATHOLOGY AND GENOMIC MEDICINE Surgical pathology report See link below for PDF Lab [facility] DEPARTMENT OF Report PATHOLOGY AND GENOMIC MEDICINE Result status This is Final Report to [facility] DEPARTMENT OF [id number] PATHOLOGY AND GENOMIC MEDICINE Performing Organization Address City/State/Zipcode Phone Number [facility] DEPARTMENT OF [address] [place] [phone] PATHOLOGY AND GENOMIC MEDICINE after 08/03/2017 Insurance Payer Benefit Subscriber ID Type Phone Address Plan / Group ELIJAH NAVA [place]xxxxxxxx[place] [facility] [place] [facility] [place] Other 04/17/1957 ATTN: JOSE ASHRAF [facility],INSTITUTIONAL nal (Home) [phone] [phone] [place] [address] (Work) Advance Directives Patient has advance care planning documents on file. For more information, bal garner contact: Samy Perkins [address] [place] [address]
--- OUTSIDE RECORDS SUMMARY | 2018-08-04 05:45 | XMS REPORT ---
Author Author [facility] Address Unknown Phone Unavailable Care Team Providers Care Traffic Control Supervisor Name Role Phone Unavailable Unavailable Problems This patient has no known problems. Allergies, Adverse Reactions, Alerts This patient has no known allergies or adverse reactions. Medications This patient has no known medications. Encounters Start Date/Time End Date/Time Encounter Type Admission Type Attending Clinicians Care Facility Care Department Encounter ID 2016-08-06 12:57:00 2016-08-06 12:57:00 Outpatient [facility] [id number] Results Test Description Test Time Test Comments Text Results Atomic Results Result Comments CT ABDOMEN AND PELVIS W/WO CLINICAL INDICATION: R10.84 Generalized abdominal painMODALITY: [employer] CT (Iterative dose reduction techniques are utilized.)TECHNIQUE: Helical imaging of the abdomen and pelvis is performed. Oral contrast is administered. 90 mls optiray 350 are administered IV. Imaging performed prior to and after administration of contrast.Computed Tomography Dose Index: 39.74 mGy. IMPRESSION:1. Hepatomegaly with diffuse hepatic steatosis.2. Status post hysterectomy.FINDINGS:COMPARISON: NoneThe lung bases are clear. No pleural disease is present. The heart size is normal. There is no pericardial effusion.The liver is enlarged measuring 19 cm in craniocaudad dimension; there is diffuse hypodensity when compared to the spleen. Low Hounsfield units seen on the noncontrast study. There are no focal attenuation defect suspicious for replacement lesion or abnormal contrast enhancement. Hepatic veins, portal venous system and biliary tree are normal. The gallbladder is normal in appearance.Stomach and duodenum are unremarkable. The spleen is normal in size and contour. No pancreatic mass, pancreatic duct dilatation or peripancreatic edema is visible.Adrenal glands and kidneys are normal. There are no renal calculi, hydronephrosis or masses noted.Neither retrocrural nor retroperitoneal adenopathy is present. Vascular structures are within normal limits.No significant bowel pathology is noted. The appendix is normal. There are no findings of bowel obstruction. Omentum and mesentery are unremarkable.The uterus is absent. No adnexal masses are visible.Abdominal wall is intact.No ascites visualized.No lytic or blastic osseous lesions are observed.PQRS 436: [id number] (For official use only.)
[2018-08-04 08:45] VITALS: BP 124/74
--- NOTE | 2018-08-04 14:24 | Operative Report ---
DATE OF PROCEDURE: August 04, 2018 SURGEON : Mahi ADAMES DPM PAPER INSPECTOR SURGEON: ANNALEE COLEMAN DPM PREOPERATIVE DIAGNOSES 1. Ganglion cyst, dorsum, left foot. 2. Metatarsocuneiform exostosis, left foot. POSTOPERATIVE DIAGNOSES 1. Ganglion cyst, dorsum, left foot. 2. Metatarsocuneiform exostosis, left foot. OPERATIVE PROCEDURES 1. Excision of ganglion cyst, left. 2. Metatarsocuneiform exostectomy, left. DETAILS OF PROCEDURE: The patient was placed on the OR table in the supine position. The left lower extremity was prepped and draped in the usual manner. A general anesthetic was administered and hemostasis accomplished using a pneumatic cuff set at 350 mmHg at thigh level. An incision approximately 4 cm in length was made on the dorsal aspect of the foot directly over the ganglion cyst. The incision was deepened. The dorsal cutaneous nerves were identified and retracted. Blood vessels were either retracted or ligated. The ganglion cyst was identified, isolated, and excised. At this time, a linear incision was made in the periosteum and capsule over the metatarsocuneiform joint. The periosteum and capsule were then dissected away. This exposed the metatarsocuneiform exostosis which was removed with an osteotome and mallet and smoothed with a power bur. The wound was then flushed with sterile saline solution. The periosteum and subcutaneous tissue were closed with 3-0 Vicryl and the skin with 4-0 nylon. Following the procedure, 9 mL of 0.5 Marcaine and 1 mL of Decadron were injected. A sterile compression dressing was then applied. At this time, the pneumatic cuff was released and reflex hyperemia was observed to all digits. The patient tolerated the procedure and anesthesia well and left the OR to recovery in good condition with vital signs stable. Job#: [id number] CHARLENE ELIZABETH
== END | disposition home or self-care (01) ==
LOC: OR 05:42
PROVIDERS: ATTEND Podiatrist Foot & Ankle Surgery
DX: M67.472 Ganglion, left ankle and foot (principal); M89.9 Disorder of bone, unspecified; E11.9 Type 2 diabetes mellitus without complications; Z01.810 Encounter for preprocedural cardiovascular examination; Z01.812 Encounter for preprocedural laboratory examination; Z79.84 Long term (current) use of oral hypoglycemic drugs
CPT/HCPCS: 28090; 28104; 36415 ×2; 80048; 82948; 93005; J0131; J0690; J1100; J2001; J2250; J2405; J2704